=== PATIENT | male | born 1965 | race Caucasian/White ===

== ENCOUNTER 2017-11-02 09:47 | Emergency (ER) | payer OTHER ==
[~2017-11-02] VITALS: Ht 182.9 cm; Wt 97.5 kg
[~2017-11-02 09:47] MED LIST: LEVAQUIN 750 M750 MG PO; LOPRESSOR50 PO; LOSARTAN POTAS100 MG PO; METFORMIN HCL500 MG PO; NOHOMEMEDICATIONS; NORCO 5-325 TA1 EACH PO; PENICILLIN VK500 M1 PO; PERCOCET 5-3251 EACH PO
[2017-11-02 09:57] VITALS: BP 133/83
[2017-11-02] MEDS ORDERED: EFFIENT10 MG PO (09:59)
[2017-11-02] MEDS ORDERED: ZPAK PO (10:12)
[2017-11-02] MEDS ORDERED: PREDNISONE 20 M20 M1 PO (10:12)
[2017-11-02] MEDS ORDERED: PROMETH-CODEIN 65 ML PO (10:17)
== END 2017-11-02 10:19 | disposition home or self-care (01) ==
LOC: M.ERS 09:47
DX: J06.9 Acute upper respiratory infection, unspecified (principal); I10 Essential (primary) hypertension; F17.210 Nicotine dependence, cigarettes, uncomplicated; Z95.5 Presence of coronary angioplasty implant and graft

== ENCOUNTER 2018-01-19 08:31 | Emergency (ER) | payer OTHER ==
[~2018-01-19] VITALS: Ht 182.9 cm; Wt 99.8 kg
[~2018-01-19 08:31] MED LIST changes: +EFFIENT10 MG PO; +PREDNISONE 20 M20 M1 PO; +PROMETH-CODEIN 65 ML PO; +ZPAK PO
[2018-01-19 09:09] LABS: ABSOLUTE BASOPHILS 0.1 thou/uL (0.0-0.2); ABSOLUTE EOSINOPHILS 0.1 thou/uL (0.0-0.7); ABSOLUTE LYMPHOCYTES 1.4 thou/uL (0.8-5.3); ABSOLUTE MONOCYTES 1.5 thou/uL (0.0-1.2); ABSOLUTE NEUTROPHILS 10.1 thou/uL (1.6-8.1); BASOPHILS 0.7 %; EOSINOPHILS 1.1 %; HEMATOCRIT 44.6 % (42.0-52.0); HEMOGLOBIN 15.4 gm/dL (14.0-18.0); LYMPHOCYTES 10.6 %; MCH 29.4 pg (26.0-34.0); MCHC 34.6 g/dL (28.0-37.0); MCV 84.9 fL (80.0-100.0); MONOCYTES 11.6 %; MPV 8.6 fl. (7.2-11.1); NUCLEATED RBCS 0 /100WBC; PLATELET COUNT* 148 thou/uL (150-400); RBC 5.25 mil/uL (4.50-6.00); RDW-CV 13.6 % (10.5-14.5); WBC 13.3 thou/uL (4.0-11.0)
[2018-01-19 09:18] LABS: ANION GAP 8 mmol/L (7-16); BUN 11 mg/dL (7-18); CALCIUM 8.9 mg/dL (8.5-10.1); CHLORIDE 100 mmol/L (98-107); CO2 29 mmol/L (21-32); CREATININE 1.1 mg/dL (0.6-1.3); GLUCOSE 277 mg/dL (70-99); POTASSIUM 3.9 mmol/L (3.5-5.1); SODIUM 137 mmol/L (136-145)
[2018-01-19 09:28] LABS: ALBUMIN 3.8 g/dL (3.4-5.0); ALKALINE PHOSPHATASE 107 U/L (46-116); LIPASE 122 U/L (73-393); NT-PRO BRAIN NAT PEPTIDE 36 pg/mL (<300); SGOT 16 U/L (15-37); SGPT 49 U/L (30-65); TOTAL BILIRUBIN 1.3 mg/dL (<0.1-1.0); TOTAL PROTEIN 7.6 g/dL (6.4-8.2); TROPONIN-I LEVEL <0.06 ng/mL (<0.06)
[2018-01-19 09:41] LABS: INFLUENZA A ANTIGEN None Detected (None Detect); INFLUENZA B ANTIGEN None Detected (None Detect)
[2018-01-19 09:52] LABS: URINE BILIRUBIN NEGATIVE (Negative); URINE BLOOD TRACE (Negative); URINE CLARITY CLEAR; URINE COLOR YELLOW; URINE GLUCOSE-RANDOM 3+ (Negative); URINE KETONES NEGATIVE (Negative); URINE LEUKOCYTES-REFLEX NEGATIVE (Negative); URINE NITRITE-REFLEX NEGATIVE (Negative); URINE PROTEIN 1+ (Negative); URINE UROBILINOGEN 0.2 E.U./dl (0.2-1.0)
[2018-01-19 10:03] LABS: BACTERIA-REFLEX 1-9 Few /HPF (None Seen); CASTS None Seen /LPF (None Seen); CRYSTALS None Seen /LPF (None Seen); MUCUS None Seen strn/LPF (None Seen); SQUAMOUS 0-3 Few /LPF (0-3); URINE WBC-REFLEX 0-5 Rare /HPF (0-5)
[2018-01-19] MEDS ORDERED: GLUCOPHAGE XR500 MG PO (10:12)
[2018-01-19 10:21] VITALS: BP 138/92
--- NOTE | 2018-01-19 16:19 | EKG ---
[place] [address] ELECTROCARDIOGRAM REPORT Name: FIDENCIO HORNE Room: [facility]#: [id number] Admission: 01/19/18 Attend Phys: Discharge: 01/19/18 Date of : 69 Report #: [id number] THIS REPORT FOR: //name// [facility] ED Test Date: 2018-01-19 Test Time: 09:02:48 Pat Name: FIDENCIO HORNE Department: Room: Gender: Partner Cco: Alan CRUZ : 1965 Requested By: Hakeem Chase Order Number: [id number] MD: Emiliano Whitmore Measurements Intervals [place] Rate: 103 P: 43 PA: 131 QRS: 17 QRSD: 90 T: 78 QT: 319 QTc: 418 Interpretive Statements Sinus tachycardia minor nonspecific st-t changes Electronically Signed On 01-19-2018 16:19:39 CDT by Emiliano Whitmore [email or web address] <ELECTRONICALLY SIGNED> By: Emiliano Whitmore MD, [facility] 01/19/18 [id number] Emiliano Whitmore MD, FACC /EPI
== END 2018-01-19 10:22 | disposition home or self-care (01) ==
LOC: M.ERS 08:31
PROVIDERS: Emergency Medicine
DX: B34.9 Viral infection, unspecified (principal); R73.9 Hyperglycemia, unspecified; I10 Essential (primary) hypertension; F17.210 Nicotine dependence, cigarettes, uncomplicated; Z95.5 Presence of coronary angioplasty implant and graft